=== PATIENT | female | born 1995 ===

== ENCOUNTER → 2025-07-31 15:30 | Outpatient (BNV) | payer OTHER, SELFPAY | PROVIDERS: Visit Provider Internal Medicine | DX: I49.3 Ventricular premature depolarization (principal); I47.10 Supraventricular tachycardia, unspecified | CPT/HCPCS: 93244 ==

== ENCOUNTER → 2025-07-31 15:30 | Outpatient (REF) | payer OTHER, SELFPAY ==
--- NOTE | 2025-07-31 | HM_ITS ---
* Total monitoring time 3 days. * Underlying rhythm is sinus with an average rate of 70/Min. * Rare supraventricular ectopy. * Isolated ventricular ectopic beat. * No significant pauses or high-grade AV blocks. * Patient markers associated with sinus rhythm. MTDD
== END ==
LOC: HO.CARD 15:30
PROVIDERS: Visit Provider Family Medicine
DX: R00.2 Palpitations (principal)
CPT/HCPCS: 93242